=== PATIENT | male | born 1995 | race American Indian/Alaskan Native ===

== ENCOUNTER 2016-07-09 20:18 | Emergency (ER) | payer OTHER ==
[2016-07-09 20:24] VITALS: BP 130/74; PULSE 72; RESP 18; TEMP 97.8; O2SAT 99
[2016-07-09] MEDS ORDERED: Naproxen 500 MG TAB PO STA (21:25)
[2016-07-09] MEDS ORDERED: Albuterol-Ipratrop 3 mg / 0.5 (3 ml) UD INH STA (21:26)
[2016-07-09] MEDS ORDERED: Naproxen 500 MG TAB PO ONE (21:44)
[2016-07-09] MEDS ORDERED: Albuterol-Ipratrop 3 mg / 0.5 (3 ml) UD ONE (21:44)
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
== END 2016-07-09 22:50 | disposition home or self-care (01) ==
LOC: H.ER 20:18
DX: M41.9 Scoliosis, unspecified (principal); J40 Bronchitis, not specified as acute or chronic; F17.200 Nicotine dependence, unspecified, uncomplicated; V49.40XA Driver injured in collision with unspecified motor vehicles in traffic accident, initial encounter